=== PATIENT | male | born 1970 | race Caucasian/White ===

== ENCOUNTER → 2017-06-05 | Outpatient (CLI) | payer BC | LOC: RADMRIMAIN 10:06 | PROVIDERS: ATTEND Family Medicine | DX: H55.09 Other forms of nystagmus (principal); Z87.828 Personal history of other (healed) physical injury and trauma; Z53.9 Procedure and treatment not carried out, unspecified reason ==

== ENCOUNTER → 2020-05-09 | Outpatient (CLI) | payer OTHER ==
--- NOTE | 2020-05-09 16:53 | CT ---
EXAMINATION TYPE: CT abdomen wo con DATE OF EXAM: 05/09/2020 COMPARISON: INDICATION: RUQ pain on & off for 2 years. No known injury. DLP: 1119.3 mGycm, Automated exposure control for dose reduction was used. CONTRAST: mL of . Study performed without Oral Contrast TECHNIQUE: Axial images were obtained from above the diaphragm to the iliac wings in the axial plane at 5 mm thick sections. Reconstructed images are reviewed on the computer in the coronal plane. FINDINGS: Limited CT sections are obtained the lung bases. The lung bases are clear. CT ABDOMEN: Liver: Normal Spleen: Normal Pancreas: Normal Adrenal glands: The adrenal glands are normal. Gallbladder: Normal Kidneys: No masses are evident. No hydronephrosis is present. No cysts are present. Renal stones a re evident. Aorta: Normal Inferior vena cava: Normal. IMPRESSIONS: 1. Normal noncontrast CT abdomen
== END | disposition home or self-care (01) ==
LOC: RADCTMAIN 10:27
DX: R10.11 Right upper quadrant pain (principal)
CPT/HCPCS: 74150